=== PATIENT | female | born 2000 | race Caucasian/White ===

== ENCOUNTER 2021-05-24 14:38 | Outpatient (CLI) | payer OTHER, SELFPAY ==
--- NOTE | 2021-05-24 15:52 | XR_ITS ---
WS: [id number] XR hand RT 2V [id number] REASON FOR EXAM: R76.8 - Other specified abnormal immunological findings i... FINDINGS: The joint spaces of the right hand are intact and well preserved. There are no bony erosions or other focal bony abnormality. No periosteal reaction. No soft tissue abnormality. No subluxations. XR/XR hand RT 2V [id number] IMPRESSION: No significant abnormality.
--- NOTE | 2021-05-24 15:52 | XR_ITS ---
WS: [id number] XR hand LT 2V [id number] REASON FOR EXAM: R76.8 - Other specified abnormal immunological findings i... FINDINGS: The joint spaces of the left hand are intact and well preserved. There are no bony erosions or other focal bony abnormality. There is no periosteal reaction. No soft tissue abnormality. No subluxations. XR/XR hand LT 2V [id number] IMPRESSION: No significant abnormality.
--- NOTE | 2021-05-24 15:52 | XR_ITS ---
WS: [id number] XR sacroiliac jts m 3V [id number] REASON FOR EXAM: L40.9 - Psoriasis, unspecified FINDINGS: The sacroiliac joints are well defined with no areas of bridging or fusion. There is no significant marginal sclerosis and no erosions. XR/XR sacroiliac jts m 3V [id number] IMPRESSION: Normal sacroiliac joints.
[2021-05-24 17:09] LABS: Add Urine Microscopic? NO; Charge for UA Resulting for Rev
[2021-05-24 17:13] LABS: Bilirubin Urine Neg (Negative); Blood Urine Neg (Negative); Glucose Urine UA Norm (Normal); Ketones Urine Negative (Negative); Leukocyte Esterase Urine Negative (Negative); Nitrate Urine Negative (Negative); Protein Urine Neg (Negative); Urine Appearance Clear (CLEAR); Urine Color Yellow (Yellow); Urobilinogen Urine Norm (Negative); pH Urine 6.5 (5-7)
[2021-05-24 17:31] LABS: Erythrocyte Sedimentation Rate 4 mm/hr (0-15)
[2021-05-24 18:16] LABS: 25 Hydroxy Vitamin D 20 ng/mL (30-100); C Reactive Protein 0.6 mg/L (0.0-4.9); Creatine Phosphokinase 40 U/L (26-192); Ferritin 12 ng/mL (15-150); Iron 25 ug/dL (37-145); Thyroid Stimulating Hormone 0.89 uIU/mL (0.27-4.20); Vitamin B12 501 pg/mL (232-1245)
[2021-05-24 20:50] LABS: Complement C3 108 mg/dL (90-180)
[2021-05-26 11:37] LABS: Cyclic Citrullinated Peptide <16 UNITS
[2021-05-26 12:07] LABS: COMPLEMENT, TOTAL (CH50) >60 U/mL (31-60)
[2021-05-26 13:23] LABS: CENTROMERE B ANTIBODY <1.0 NEG AI (<1.0 NEG); JO-1 ANTIBODY <1.0 NEG AI (<1.0 NEG); RNP ANTIBODY <1.0 NEG AI (<1.0 NEG); SCL-70 ANTIBODY <1.0 NEG AI (<1.0 NEG); SJOGREN'S ANTIBODY (SS-A) <1.0 NEG AI (<1.0 NEG); SM ANTIBODY <1.0 NEG AI (<1.0 NEG); SS-B <1.0 NEG AI (<1.0 NEG)
[2021-05-26 14:47] LABS: COMPLEMENT COMPONENT C3C 111 mg/dL (83-193); COMPLEMENT COMPONENT C4C 20 mg/dL (15-57)
[2021-05-26 15:06] LABS: THYROID PEROXIDASE ANTIBODIES <1 IU/mL (<9)
[2021-05-27 10:23] LABS: Quantiferon Mitogen 8.91 IU/mL; Quantiferon Nil 0.01 IU/mL; Quantiferon TB Gold NEGATIVE (NEGATIVE)
[2021-05-27 16:36] LABS: ANA SCREEN, IFA POSITIVE (NEGATIVE); ANA TITER 1:40 titer
[2021-05-29 12:03] LABS: DNA AB (DS) CRITHIDIA,IFA NEGATIVE (NEGATIVE)
== END 2021-05-24 14:39 | disposition home or self-care (01) ==
PROVIDERS: PCP Family Medicine; Visit Provider Internal Medicine
DX: G47.00 Insomnia, unspecified (principal); M25.50 Pain in unspecified joint; R53.83 Other fatigue; R76.8 Other specified abnormal immunological findings in serum; L40.9 Psoriasis, unspecified; M05.9 Rheumatoid arthritis with rheumatoid factor, unspecified; M19.90 Unspecified osteoarthritis, unspecified site; Z11.1 Encounter for screening for respiratory tuberculosis
CPT/HCPCS: 36415; 72202; 73120; 81003; 82306; 82550; 82607; 82728; 83516; 83540; 84443; 85651; 86140; 86160; 86162; 86200; 86235; 86255; 86376; 86431; 86480